=== PATIENT | female | born 1955 | race Caucasian/White ===

== ENCOUNTER 2018-06-30 10:55 | Outpatient (CLI) | payer BC | END 2018-06-30 10:56 | disposition home or self-care (01) | LOC: CONVCARE 10:55 | PROVIDERS: ATTEND Orthopaedic Surgery | DX: M25.561 Pain in right knee (principal); M13.862 Other specified arthritis, left knee | CPT/HCPCS: 73562 ==

== ENCOUNTER 2018-07-01 10:16 | Day surgery (SDC) | payer BC ==
[2018-07-01] MEDS ORDERED: PROPOFOL 500 MG/50 ML EMU IV ONE (11:53)
[2018-07-01] MEDS ORDERED: LIDOCAINE HCL 1% MPF 30 SOL ONE (11:53)
[2018-07-01 13:04] VITALS: TEMP 98.2
[2018-07-01 13:28] VITALS: O2SAT 99
[2018-07-01 13:37] VITALS: BP 140/84; PULSE 78; RESP 18
== END 2018-07-01 13:45 | disposition home or self-care (01) ==
LOC: SURG 10:16
PROVIDERS: ATTEND Internal Medicine Gastroenterology
DX: Z12.11 Encounter for screening for malignant neoplasm of colon (principal); D50.9 Iron deficiency anemia, unspecified; Z83.71 Family history of colonic polyps; K64.4 Residual hemorrhoidal skin tags; K57.32 Diverticulitis of large intestine without perforation or abscess without bleeding; K64.8 Other hemorrhoids; D12.5 Benign neoplasm of sigmoid colon
CPT/HCPCS: 99001; J2001; J2704